=== PATIENT | female | born 1935 | race Caucasian/White ===

== ENCOUNTER → 2018-01-09 | Outpatient (REF) | payer MEDICARE, OTHER | LOC: M LAB REF 09:40 | DX: R19.7 Diarrhea, unspecified (principal) | CPT/HCPCS: 83630 ==

== ENCOUNTER 2018-01-28 13:40 | Outpatient (RCR) | payer MEDICARE, OTHER | END 2018-02-15 | LOC: M PT 13:40 | DX: Z51.89 Encounter for other specified aftercare (principal); M54.5 Low back pain | CPT/HCPCS: 97110 ==

== ENCOUNTER 2018-04-04 12:17 | Day surgery (SDC) | payer MEDICARE, OTHER ==
[2018-04-04] MEDS: NS 1,000 ML IV (12:57)
[2018-04-04] MEDS ORDERED: LIDOCAINE 2% INJ 100 MG/5 ML SDV (FOR ANES.) As Ordered (14:04)
[2018-04-04] MEDS ORDERED: PROPOFOL 200 MG/20 ML VIAL As Ordered (14:04)
[2018-04-04] MEDS ORDERED: fentaNYL 100 MCG/2 ML INJECTION (J3010) As Ordered (14:04)
== END 2018-04-04 14:43 | disposition home or self-care (01) ==
LOC: M OPP 12:17
DX: R12 Heartburn (principal); R10.13 Epigastric pain; R11.10 Vomiting, unspecified; R19.7 Diarrhea, unspecified; I10 Essential (primary) hypertension; E03.9 Hypothyroidism, unspecified; K21.9 Gastro-esophageal reflux disease without esophagitis; M19.90 Unspecified osteoarthritis, unspecified site; M54.89 Other dorsalgia; F41.9 Anxiety disorder, unspecified; F32.9 Major depressive disorder, single episode, unspecified; G25.81 Restless legs syndrome; I63.9 Cerebral infarction, unspecified; Z78.0 Asymptomatic menopausal state; J44.9 Chronic obstructive pulmonary disease, unspecified; R32 Unspecified urinary incontinence; Z85.118 Personal history of other malignant neoplasm of bronchus and lung; Z92.3 Personal history of irradiation; Z87.891 Personal history of nicotine dependence; I72.9 Aneurysm of unspecified site; Z91.041 Radiographic dye allergy status; Z88.5 Allergy status to narcotic agent; Z88.8 Allergy status to other drugs, medicaments and biological substances; Z79.899 Other long term (current) drug therapy; Z80.8 Family history of malignant neoplasm of other organs or systems
CPT/HCPCS: 43235

== ENCOUNTER → 2018-05-26 | Outpatient (CLI) | payer MEDICARE, OTHER ==
[2018-05-26 08:41] LABS: AMYLASE 26 U/L (25-115); LIPASE 180 U/L (73-393)
[2018-05-27 09:58] LABS: CA19-9 TUMOR MARKER,CARBOHYDRA 5.2 U/ML (<35.0)
[2018-05-29 00:07] LABS: CHROMOGRANIN A 2 nmol/L (0-5)
[2018-05-29 00:07] LABS: GASTRIN 18 pg/mL (0-115)
== END ==
LOC: M LAB 07:19
DX: R93.3 Abnormal findings on diagnostic imaging of other parts of digestive tract (principal); R19.7 Diarrhea, unspecified; Z79.899 Other long term (current) drug therapy
CPT/HCPCS: 82150

== ENCOUNTER → 2018-05-27 | Outpatient (CLI) | payer MEDICARE, OTHER ==
[~2018-05-27] MED LIST: GASTROGRAFIN SOLUTION 30ML (Q9963) As Ordered; ISOVUE-370 76% 100ML VIAL (Q9967) As Ordered
== END ==
LOC: M RAD 11:37
DX: K76.89 Other specified diseases of liver (principal); K57.30 Diverticulosis of large intestine without perforation or abscess without bleeding
CPT/HCPCS: Q9963

== ENCOUNTER 2018-07-03 06:36 | Day surgery (SDC) | payer MEDICARE, OTHER ==
[2018-07-03] MEDS: NS 1,000 ML IV (07:00)
[2018-07-03] MEDS ORDERED: PROPOFOL 200 MG/20 ML VIAL As Ordered ×2 (07:54→07:56)
[2018-07-03] MEDS ORDERED: LIDOCAINE 2% INJ 100 MG/5 ML SDV (FOR ANES.) As Ordered (07:54)
== END 2018-07-03 08:40 | disposition home or self-care (01) ==
LOC: M OPP 06:36
DX: K57.30 Diverticulosis of large intestine without perforation or abscess without bleeding (principal); K64.8 Other hemorrhoids; K52.831 Collagenous colitis
CPT/HCPCS: 45380

== ENCOUNTER → 2019-06-09 | Outpatient (CLI) | payer MEDICARE, OTHER ==
[~2019-06-09] MED LIST changes: +ADVA230A INH; +ALBU83IN INH; +BENI5TAB3 PO; +DARV100T; +ESTR62CR PV; -GASTROGRAFIN SOLUTION 30ML (Q9963) As Ordered; -ISOVUE-370 76% 100ML VIAL (Q9967) As Ordered; +LEVO25TA5 PO; +LIDO5DIS; +LIDO5DIS41 TD; +MULT1TAB10 PO; +PANT40TA3 PO; +PYCNOGENOL; +RANI150T PO; +ROPI0.253 PO; +SERT25TA21 PO; +SPIR1CAP INH; +TRAV04OPD OD; +VENTAER; +ZOFR4TAB16 PO; +[UNRECOGNIZED DRUG - OTHER]
--- NOTE | 2019-06-10 16:12 | REP ---
HISTORY: Followup lung carcinoma. COMPARISON: CT/PET 03/10/2015 which showed two hypermetabolic nodules in the lung jackson, one in the left lower lobe and the other in the right upper lobe. After the intravenous administration of 8.6 mCi of FDG-18, triplane whole body PET/CT was performed from the skull base to the mid thigh. There is a single tiny focus of hypermetabolic activity seen in the right neck retromandibular region inferior to the parotid gland, but likely within the parotid space. There are two areas of hypermetabolic activity seen in the right lung, one in the upper lobe with SUV values of 2.73 and the other in the right lower lobe with SUV values of 3.24. The right lower lobe area is quite large measuring approximately 4.2 cm. The right upper lobe area is small measuring approximately 2.2 cm. There are no additional areas of abnormal hypermetabolic activity seen in the neck, chest, abdomen or pelvis. There is a small focus of hypermetabolic activity seen in the trochanteric tendinobursal region of each hip. The SUV values of these areas are approximately 3.9. IMPRESSION: 1. There is a focus of hypermetabolic activity seen in the right neck as described above. Whether this represents a focus of inflammation or neoplasm cannot be stated by this exam. Contrast enhanced CT examination of the neck is recommended for further evaluation. 2. Abnormal hypermetabolic activity seen in the right lung field as described above, which could be either secondary to neoplasm or pneumonia. This should be correlated clinically. 3. 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 3. It should be stated that in the left paraspinal musculature, in the region of the erector spinae muscle group there is a single focus of hypermetabolic activity measuring 3.58 SUV values and the exact etiology of this is uncertain. This likely represents a focal area of muscular uptake due to improper resting, however, metastases cannot be ruled out, although this would be somewhat unlikely. Electronically Signed by Pola Cortez DO 06/10/2019 04:31 P
== END ==
LOC: M PLARAD 09:22
DX: C34.92 Malignant neoplasm of unspecified part of left bronchus or lung (principal)
CPT/HCPCS: 78815; A9552

== ENCOUNTER → 2020-06-14 | Outpatient (CLI) | payer MEDICARE, OTHER ==
[~2020-06-14] MED LIST changes: +ISOVUE-370 76% 100ML VIAL As Ordered ONE; +PANT40TA29 PO; -PANT40TA3 PO
--- NOTE | 2020-06-14 17:46 | REP ---
INDICATION: RIGHT RENAL CYST. HX LUNG CA COMPARISON: 05/27/2018. TECHNIQUE: CT Scan of the abdomen was performed with intravenous administration of 100 cc of Isovue 370, without oral contrast. FINDINGS: Lung bases: There is linear fibrotic change in the left lung base. There is a small hiatal hernia. Liver: There are multiple cysts scattered throughout the liver. The largest is in the left lobe and measures approximately 5.1 cm in diameter. This is slightly increased in size when compared to the prior study when it measured 4.5 cm. There is mild hepatomegaly, the length the liver 17.7 cm. Gallbladder: Unremarkable. Spleen: Normal. Adrenals: Normal. Pancreas: Ill-defined hypodensity in the head of the pancreas is stable consistent with focal fatty infiltration. Kidneys: Left kidney unremarkable. There is a subcentimeter cyst in the mid right kidney laterally. A cyst of the lower pole of the right kidney demonstrates no internal enhancement and measures 2.7 cm in diameter. Small and large bowel: Unremarkable. Free fluid: None. Abdominal aorta: No aneurysm or dissection. There are atherosclerotic calcifications of the abdominal aorta of a moderate degree. Adenopathy: None. Osseous structures: There are degenerative changes of the spine with no compression fracture. IMPRESSION: Multiple cysts in the liver without suspicious mass. Right renal cysts with no suspicious mass. No adenopathy. <Electronically signed by Severino Nye > 06/14/20 [id number]
--- NOTE | 2020-06-15 07:42 | REP ---
INDICATION: RIGHT RENAL CYST. HX LUNG CA. COMPARISON: Comparison PET/CT study June 09, 2019. TECHNIQUE: Helical scanning is acquired. 3 mm axial images re-formatted. Coronal and sagittal MPR images are generated. Contrast enhancement dose is 100 mL of intravenous Isovue 370. FINDINGS: There is no evidence of pleural effusion or pericardial effusion. Fairly extensive vascular calcification is observed. Multiple simple cysts are noted scattered throughout the right and left lobes of the liver. These findings are unchanged from the comparison PET/CT images. There is a sliding-type hiatal hernia visible and a small accessory splenule is noted in the left upper quadrant. No extra thoracic mass or adenopathy is seen. The adrenal glands are normal in appearance. There is a tiny cortical cyst in the upper pole of the right kidney. There is a perihilar parenchymal opacity in the left lower lobe with some metallic fiducial markers adjacent to it. This appears essentially unchanged from the CT images associated with the PET/CT from June 09, 2019. There is some linear fibrosis in the lingula at the left lung base also unchanged. In the right inferior perihilar region of the right lower lobe there is a perihilar parenchymal opacity with ill-defined margins also essentially unchanged from the June 09, 2019 study. There is a new spiculated nodular opacity in the superior segment of the left lower lobe 6 mm in diameter on today's CT study projecting on page 45 of 105 and series 204. This was not evident previously. In addition, there is a new spiculated nodular density in the right upper lobe on today's CT study which measures 12 mm in greatest diameter. This is also new when compared with the June 09, 2019 study. These spiculated nodules must be considered potentially suspicious. I suspect the perihilar bilateral lower lobe more confluent opacities may relate to previous therapy, question SBRT. There is mild biapical pleuroparenchymal fibrosis which is unchanged. Some emphysematous changes are noted in the apices. Lastly there is a third perihilar area of parenchymal opacity in the right upper lobe anterior segment which was present previously as well. No hilar or mediastinal mass or adenopathy is observed. There is a tiny thyroid nodule on the right. This is under a cm. No bony destructive lesion is appreciated. IMPRESSION: There are peribronchovascular perihilar areas of chronic infiltrate and fibrosis in the left lower lobe, right lower lobe, and right upper lobe which are unchanged from the comparison PET-CT images June 09, 2019. These may be related to previous treatment. In addition however, there is a spiculated 6 mm nodule in the left lower lobe and another 12 mm spiculated nodule in the right upper lobe which are new when compared with that prior CT study and merit some suspicion. CT follow-up recommended. Stable hepatic cysts. <Electronically signed by Josh Squires > 06/15/20 [id number]
== END ==
LOC: M RAD 12:43
DX: R91.8 Other nonspecific abnormal finding of lung field (principal); K76.89 Other specified diseases of liver; N28.1 Cyst of kidney, acquired; Z85.118 Personal history of other malignant neoplasm of bronchus and lung
CPT/HCPCS: 71260; 74160; Q9967

== ENCOUNTER → 2021-01-27 | Outpatient (CLI) | payer MEDICARE, OTHER ==
--- NOTE | 2021-01-27 13:33 | REP ---
INDICATION: HX OF LUNG CANCER COMPARISON: 06/14/2020 the only prior TECHNIQUE: Standard helical technique after the intravenous administration of 100 cc Isovue 370. FINDINGS: The mediastinum and pulmonary sheba are stable. No pleural or pericardial effusions have developed. The imaged upper abdomen and imaged osseous structures are stable. Evaluation of the lung jackson shows an increase in size of the asymmetric density seen previously in the right upper lobe which measured approximately 1.2 cm in its greatest dimension on the prior exam and now measures approximately 2.2 cm in its greatest dimension. The large asymmetric density abutting the right hilum is unchanged. The large bilateral infrahilar densities seen on the prior exam are also unchanged. No completely new abnormal nodules, masses, or opacities have developed. There are stable appearing chronic lung field changes. IMPRESSION: 1. The right upper lobe asymmetric density seen previously has gotten larger as described above. Consider re-evaluation with PET-CT so it can be compared to the prior PET-CT of 08/09/2019 if clinically relevant. 2. Other findings as described above. <Electronically signed by Pola Cortez > 01/27/21 [id number]
== END ==
LOC: M RAD 07:36
DX: Z85.118 Personal history of other malignant neoplasm of bronchus and lung (principal)
CPT/HCPCS: 71260; Q9967

== ENCOUNTER → 2021-02-21 | Outpatient (CLI) | payer MEDICARE, OTHER ==
[~2021-02-21] MED LIST changes: -ISOVUE-370 76% 100ML VIAL As Ordered ONE
--- NOTE | 2021-02-22 08:59 | REP ---
INDICATION: LUNG CANCER. COMPARISON: Comparison PET-CT studies are dated June 09, 2019 and March 10, 2015. Recent chest CT study, January 27, 2021 showed enlarging density right upper lobe.. TECHNIQUE: Fifty-six minutes following the intravenous injection of a 8.82 mCi dose of F-18 FDG, three-dimensional PET scintigraphy is acquired from the skull base to the proximal thighs. Triplanar noncontrast CT scanning is acquired through the same anatomic range for attenuation correction, and image registration with scan parameters optimized to minimize radiation exposure to the patient. PET scintigraphy and CT datasets were fused and displayed on a workstation with multiplanar and projection display capability. FINDINGS: In the head and neck soft tissues, a hypermetabolic hayley focus is again seen in the right parotid gland. This has maximum SUV value today of 7.99. On the previous scan in May of 2019, maximum SUV value here was 8.05. Head and neck soft tissues are otherwise unremarkable. There is some normal variant arthropathy associated soft tissue uptake about the shoulders and in the paraspinal regions similar to the prior study. In the thorax there is a fairly large sliding-type hiatal hernia. There is bony and soft tissue uptake at the level of the fracture involving the left posterolateral 6th rib. This is a new finding. No other abnormal skeletal uptake is seen. No definite bony destructive lesion is seen. The recently identified enlarging nodule in the right upper lobe is again seen on accompanying CT study. This irregular nodular density demonstrates hypermetabolic uptake. Maximum standard uptake value is 5.46 in this nodular density. This lesion was not present on the [address] PET-CT. There is mildly hypermetabolic uptake in the right upper lobe anteriorly in a linear zone of fibro atelectatic change. Maximum SUV value 3.68. On the previous scan from 2018, maximum SUV value here was 2.77. Morphologically, this area is unchanged. There is mildly hypermetabolic uptake in a chronic infiltrate in the right lower lobe posteriorly, maximum standard uptake value 3.42. Previously this area measured 2.70. Uptake in the right inferior hilar region is seen only very slightly increased from the prior study and, SUV value 4.07 today, previously 3.24. In the abdomen and pelvis renal and hepatic cysts are again noted. No abnormal hypermetabolic uptake is seen in the abdomen or pelvis. No other abnormal skeletal uptake. IMPRESSION: There is a new hypermetabolic nodular density in the right upper lobe. This is nonspecific. Malignancy cannot be excluded. This corresponds to the enlarging density described on the January 27, 2021 CT study. There are chronic appearing fibro atelectatic and infiltrative changes elsewhere in the lung jackson which are similar to the prior study and most likely post treatment changes. There is a stable hypermetabolic nodule in the right parotid gland. <Electronically signed by Josh Squires > 02/22/21 0828
== END ==
LOC: M PLARAD 11:23
PROVIDERS: ATTEND Internal Medicine Medical Oncology
DX: C34.11 Malignant neoplasm of upper lobe, right bronchus or lung (principal); C34.92 Malignant neoplasm of unspecified part of left bronchus or lung
CPT/HCPCS: 78815; A9552

== ENCOUNTER → 2021-03-08 | Outpatient (REF) | payer MEDICARE, OTHER ==
[2021-03-08 17:42] LABS: BASO # 0.1 10^3/uL (0.0-0.2); BASO % 1.3 % (0.0-1.0); EOS # 0.1 10^3/uL (0.0-0.5); EOS % 1.3 % (0.0-3.0); HEMATOCRIT 39.8 % (36.0-47.0); HEMOGLOBIN 12.6 g/dl (12.0-15.5); LYMPH # 1.9 10^3/uL (1.5-5.0); LYMPH % 18.6 % (24.0-44.0); MEAN CORPUSCULAR HEMOGLOBIN 30.2 pg (27.0-33.0); MEAN CORPUSCULAR HGB CONC 31.7 g/dl (32.0-36.5); MEAN CORPUSCULAR VOLUME 95.4 fl (80.0-96.0); MONO # 0.5 10^3/uL (0.0-0.8); MONO % 5.1 % (2.0-8.0); NEUTROPHILS # 7.6 10^3/uL (1.5-8.5); NEUTROPHILS % 73.1 % (36.0-66.0); PLATELET COUNT, AUTOMATED 316 10^3/uL (150-450); RED BLOOD COUNT 4.17 10^6/uL (4.00-5.40); WHITE BLOOD COUNT 10.4 10^3/uL (4.0-10.0)
[2021-03-08 18:13] LABS: CALCIUM LEVEL 9.1 MG/DL (8.8-10.2); CREATININE FOR GFR 1.06 MG/DL (0.55-1.30); GLOMERULAR FILTRATION RATE 52.7 (>32); POTASSIUM SERUM 4.6 MEQ/L (3.5-5.1)
== END ==
LOC: M LAB REF 16:47
PROVIDERS: ATTEND Internal Medicine Pulmonary Disease
DX: R91.8 Other nonspecific abnormal finding of lung field (principal)

== ENCOUNTER → 2021-03-14 | Outpatient (REF) | payer MEDICARE, OTHER ==
[2021-03-14 16:58] LABS: INR 0.92; PROTHROMBIN TIME 12.6 SECONDS (12.5-14.3)
[2021-03-14 16:59] LABS: PARTIAL THROMBOPLASTIN TIME 29.2 SECONDS (24.2-38.5)
== END ==
LOC: M LAB REF 16:42
PROVIDERS: ATTEND Internal Medicine Pulmonary Disease
DX: R91.8 Other nonspecific abnormal finding of lung field (principal)

== ENCOUNTER → 2021-03-17 | Outpatient (CLI) | payer MEDICARE, OTHER ==
--- NOTE | 2021-03-17 11:38 | REP ---
INDICATION: ABN FINDING OF LUNG. COMPARISON: CT 01/27/2021, 06/14/2020; PET-CT 02/21/2021 TECHNIQUE: Noncontrast images through the chest with coronal and sagittal reconstructions provided. FINDINGS: The enlarging right upper lobe nodular density on the CT of 01/27/2021 was hypermetabolic on PET CT it has not enlarged further but it has become less confluent. Stable peripheral right upper lobe opacity on image 12 is unchanged on multiple prior studies. Some apical pleuroparenchymal scarring bilaterally is stable. Stable chronic density suggesting fibrosis and or scarring abutting the right hilum in the upper lobe is unchanged from the multiple prior studies. The infrahilar right lower lobe asymmetric density is likewise unchanged from the multiple prior studies. Perihilar infrahilar left lower lobe asymmetric densities were also unchanged. No new left upper lobe or lingular density seen. Some minor lingular atelectatic change abutting the major fissure in the inferior lingular segment. I do not see effusion or new parenchymal findings. Heart size not grossly enlarged. There is no pericardial thickening or effusion. There is a moderate-sized hiatal hernia unchanged the left atrium is enlarged. There are coronary artery calcifications and calcifications at the aortic root, arch and descending aorta. The right hilar/infrahilar fullness is unchanged from the multiple prior studies. AP window shows a 10 mm node on image 46, stable. The other nodes are subcentimeter in the mediastinum. Sternum, manubrium, medial clavicles, visualized scapulae, humeral heads normal and the lateral 6th rib fracture is unchanged. No other rib injuries. Spine unchanged and intact. Upper abdomen shows multiple hepatic cysts and a slightly prominent left hepatic lobe. No splenomegaly or focal splenic lesion. No biliary dilatation. Adrenal glands are normal. Upper poles kidneys intact. The portion of pancreas seen intact. IMPRESSION: 1. There are multiple areas of chronic, stable fibrotic or post treatment changes in the bilateral lungs. The posterior right upper lobe enlarging focus shows slightly less confluence and no further progression. Please see PET-CT report 02/21/2021 regarding uptake in this region. 2. No effusion, acute infiltrate, new parenchymal lesions, change in the mediastinal or hilar nodes in contours nor upper abdominal acute changes. 3. Left lateral 6th rib fracture again seen unchanged. No new bony findings. <Electronically signed by Raúl Hendricks > 03/17/21 [id number]
== END ==
LOC: M RAD 10:21
PROVIDERS: ATTEND Internal Medicine Pulmonary Disease
DX: R91.8 Other nonspecific abnormal finding of lung field (principal)

== ENCOUNTER → 2021-06-09 | Outpatient (CLI) | payer MEDICARE, OTHER ==
--- NOTE | 2021-06-09 12:08 | REP ---
INDICATION: ABNORMAL FINDING OF LUNG FIELD COMPARISON: Multiple the latest 03/17/2021 also without contrast standard helical technique without contrast TECHNIQUE: Standard helical technique without contrast FINDINGS: There is no significant change in appearance of the mediastinum or pulmonary sheba. The 1 cm size lymph node in the consuelo is unchanged. No pleural or pericardial effusions have developed. There is a hiatal hernia status quo. There is no significant change in appearance of the imaged upper abdomen or imaged osseous structures. Evaluation of the lung jackson shows chronic emphysematous changes status quo. Chronic bilateral asymmetric pulmonary densities status quo. There are multiple pulmonary nodules which are stable. There is biapical pleuroparenchymal scarring status quo. There is a new ground-glass nodule in the left lower lobe which measures 1.2 cm. IMPRESSION: There is a new 1.2 cm sized ground-glass nodule in the left lower lobe. This is somewhat concerning. Close follow-up is recommended. <Electronically signed by Pola Cortez > 06/09/21 [id number]
== END ==
LOC: M PLAIMG 10:07
PROVIDERS: ATTEND Internal Medicine Pulmonary Disease
DX: R91.8 Other nonspecific abnormal finding of lung field (principal)

== ENCOUNTER → 2021-07-10 | Outpatient (CLI) | payer MEDICARE, OTHER ==
--- NOTE | 2021-07-10 11:52 | REP ---
INDICATION: ABN FINDING OF LUNG COMPARISON: Multiple the latest 06/09/2021 TECHNIQUE: Standard helical technique without contrast FINDINGS: The mediastinum and pulmonary sheba are stable. There is a hiatal hernia status quo. There are benign calcifications status quo. The imaged upper abdomen and imaged osseous structures are unchanged. There are spinal degenerative changes. There are multiple hepatic cysts. Evaluation of the lung jackson shows significant reduction in size and density in the ground-glass nodule seen in the left lower lobe on the latest prior exam. The lung jackson are otherwise completely stable. There are no new abnormalities. IMPRESSION: Improvement as described above. There is no revised Fleischner society criteria on the recommendation for follow-up of such findings. Follow-up should be based on clinical assessment. <Electronically signed by Pola Cortez > 07/10/21 [id number]
== END ==
LOC: M RAD 09:26
PROVIDERS: ATTEND Internal Medicine Pulmonary Disease
DX: R91.8 Other nonspecific abnormal finding of lung field (principal)

== ENCOUNTER → 2022-01-08 | Outpatient (CLI) | payer MEDICARE, OTHER | LOC: M PLAIMG 09:31 | PROVIDERS: ATTEND Internal Medicine Pulmonary Disease | DX: R91.8 Other nonspecific abnormal finding of lung field (principal) ==

== ENCOUNTER → 2022-01-11 | Outpatient (REF) | payer MEDICARE, OTHER ==
[2022-01-11 14:07] LABS: BILIRUBIN,DIRECT 0.1 MG/DL (0.0-0.2); BILIRUBIN,TOTAL 0.4 MG/DL (0.2-1.0)
== END ==
LOC: M LAB REF 12:42
PROVIDERS: ATTEND Internal Medicine Pulmonary Disease
DX: R91.8 Other nonspecific abnormal finding of lung field (principal)

== ENCOUNTER → 2022-01-24 | Outpatient (CLI) | payer MEDICARE, OTHER ==
[~2022-01-24] MED LIST changes: +ALBU2.5V10 INH; -ALBU83IN INH
== END ==
LOC: M RAD 07:43
PROVIDERS: ATTEND Internal Medicine Pulmonary Disease
DX: R10.11 Right upper quadrant pain (principal)

== ENCOUNTER → 2022-07-06 | Outpatient (CLI) | payer MEDICARE, OTHER ==
[~2022-07-06] MED LIST changes: -BENI5TAB3 PO; +OLME5TAB27 PO
== END ==
LOC: M PLAIMG 10:12
PROVIDERS: ATTEND Internal Medicine Pulmonary Disease
DX: R91.8 Other nonspecific abnormal finding of lung field (principal)

== ENCOUNTER 2022-11-20 13:21 | Emergency (ER) | payer MEDICARE, OTHER ==
[~2022-11-20] VITALS: Ht 167.6 cm; Wt 82.3 kg
[2022-11-20] MEDS ORDERED: methylPREDNISolone 125MG 2ML VIAL IV STA (15:00)
[2022-11-20 15:01] LABS: BASO % 0.5 % (0.0-1.0); EOS # 0.5 10^3/uL (0.0-0.5); HEMATOCRIT 32.9 % (36.0-47.0); HEMOGLOBIN 10.4 g/dl (12.0-15.5); LYMPH # 1.3 10^3/uL (1.5-5.0); LYMPH % 17.9 % (24.0-44.0); MEAN CORPUSCULAR HEMOGLOBIN 30.9 pg (27.0-33.0); MEAN CORPUSCULAR HGB CONC 31.6 g/dl (32.0-36.5); MEAN CORPUSCULAR VOLUME 97.6 fl (80.0-96.0); MONO # 0.6 10^3/uL (0.0-0.8); MONO % 7.6 % (2.0-8.0); NEUTROPHILS # 5.1 10^3/uL (1.5-8.5); NEUTROPHILS % 67.6 % (36.0-66.0); PLATELET COUNT, AUTOMATED 286 10^3/uL (150-450); RED BLOOD COUNT 3.37 10^6/uL (4.00-5.40); WHITE BLOOD COUNT 7.5 10^3/uL (4.0-10.0)
[2022-11-20 15:09] LABS: BLOOD UREA NITROGEN 11 MG/DL (9-23); CALCIUM LEVEL 8.2 MG/DL (8.3-10.6); CARBON DIOXIDE LEVEL 30 MMOL/L (20-31); CHLORIDE LEVEL 106 MMOL/L (98-107); CREATININE FOR GFR 0.72 MG/DL (0.55-1.30); GLOMERULAR FILTRATION RATE > 60.0 (>32); GLUCOSE, FASTING 103 MG/DL (74-106); POTASSIUM SERUM 3.6 MMOL/L (3.5-5.1); SODIUM LEVEL 138 MMOL/L (136-145)
[2022-11-20] MEDS: IPRATROPIUM 0.5MG/ALBUTEROL 2.5MG INH SOL UD 3ML (DUONEB) NEB SCH ×3 (15:12→18:04)
[2022-11-20 15:13] LABS: CPK CREATINE PHOSPHOKINASE 167 U/L (34-145); MB/CK RELATIVE INDEX 1.19 (< OR =4)
[2022-11-20] MEDS ORDERED: FLUT1BLS8 (15:37)
[2022-11-20] MEDS ORDERED: METH4PACK (15:37)
[2022-11-20] MEDS ORDERED: SYNT50TA (15:37)
[2022-11-20] MEDS ORDERED: CILO50TA2 (15:37)
[2022-11-20] MEDS ORDERED: PRED10TA2 PO (17:21)
[2022-11-20 18:23] VITALS: BP 148/57
== END 2022-11-20 18:25 | disposition home or self-care (01) ==
LOC: M ED 13:21
DX: R07.9 Chest pain, unspecified (principal); J44.1 Chronic obstructive pulmonary disease with (acute) exacerbation; I10 Essential (primary) hypertension; K21.9 Gastro-esophageal reflux disease without esophagitis; Z86.79 Personal history of other diseases of the circulatory system; Z88.5 Allergy status to narcotic agent; Z88.8 Allergy status to other drugs, medicaments and biological substances; Z79.52 Long term (current) use of systemic steroids; Z79.83 Long term (current) use of bisphosphonates; Z79.899 Other long term (current) drug therapy
CPT/HCPCS: 71045; 80048; 82550; 82553; 84484; 85025; 93005; 94640; 96374; 99284; J2930

== ENCOUNTER → 2022-11-28 | Outpatient (REF) | payer MEDICARE, OTHER ==
[~2022-11-28] MED LIST changes: +CILO50TA2; +FLUT1BLS8; +METH4PACK; +PRED10TA2 PO; +SYNT50TA
== END ==
LOC: M LAB REF 17:07
PROVIDERS: ATTEND Internal Medicine Critical Care Medicine
DX: R05.3 Chronic cough (principal)

== ENCOUNTER → 2022-12-04 | Outpatient (CLI) | payer MEDICARE, OTHER | LOC: M RAD 07:59 | PROVIDERS: ATTEND Internal Medicine Pulmonary Disease | DX: R91.8 Other nonspecific abnormal finding of lung field (principal) ==

== ENCOUNTER → 2022-12-11 | Outpatient (CLI) | payer MEDICARE, OTHER ==
[~2022-12-11] MED LIST changes: +GASTROGRAFIN SOLUTION 30ML As Ordered ONE; +ISOVUE-370 76% 100ML VIAL As Ordered ONE
== END ==
LOC: M RAD 12:13
PROVIDERS: ATTEND Internal Medicine Critical Care Medicine
DX: K86.1 Other chronic pancreatitis (principal); I51.7 Cardiomegaly; K44.9 Diaphragmatic hernia without obstruction or gangrene; K76.89 Other specified diseases of liver; N28.1 Cyst of kidney, acquired; K57.90 Diverticulosis of intestine, part unspecified, without perforation or abscess without bleeding
CPT/HCPCS: 74176; Q9963

== ENCOUNTER → 2023-01-08 | Outpatient (CLI) | payer MEDICARE, OTHER ==
[~2023-01-08] MED LIST changes: -GASTROGRAFIN SOLUTION 30ML As Ordered ONE; -ISOVUE-370 76% 100ML VIAL As Ordered ONE
[2023-01-08 10:51] LABS: ALBUMIN 3.1 G/DL (3.2-5.2); ALKALINE PHOSPHATASE 58 U/L (46-116); ALT/SGPT 17 U/L (7.0-40); AST/SGOT 23 U/L (<34); BILIRUBIN,TOTAL 0.4 MG/DL (0.3-1.2); BLOOD UREA NITROGEN 15 MG/DL (9-23); CALCIUM LEVEL 9.2 MG/DL (8.3-10.6); CARBON DIOXIDE LEVEL 30 MMOL/L (20-31); CHLORIDE LEVEL 107 MMOL/L (98-107); CREATININE FOR GFR 0.82 MG/DL (0.55-1.30); GLOMERULAR FILTRATION RATE > 60.0 (>32); GLUCOSE, FASTING 80 MG/DL (74-106); POTASSIUM SERUM 4.4 MMOL/L (3.5-5.1); SODIUM LEVEL 142 MMOL/L (136-145)
[2023-01-08 11:10] LABS: CA19-9 TUMOR MARKER,CARBOHYDRA 2.7 U/ML (<35.0)
== END ==
LOC: M LAB 09:21
PROVIDERS: ATTEND Internal Medicine Gastroenterology
DX: K86.89 Other specified diseases of pancreas (principal)

== ENCOUNTER → 2023-04-11 | Outpatient (CLI) | payer MEDICARE, OTHER ==
[~2023-04-11] MED LIST changes: -ROPI0.253 PO; +ROPI5TAB19 PO
[2023-04-11 10:51] LABS: ALBUMIN 3.8 G/DL (3.2-5.2); BILIRUBIN,DIRECT 0.1 MG/DL (<0.4); BILIRUBIN,TOTAL 0.5 MG/DL (0.3-1.2); TOTAL PROTEIN 7.7 G/DL (5.7-8.2)
[2023-04-11 11:07] LABS: CA19-9 TUMOR MARKER,CARBOHYDRA 11.1 U/ML (<35.0)
== END ==
LOC: M LAB 09:54
PROVIDERS: ATTEND Internal Medicine Gastroenterology
DX: K86.89 Other specified diseases of pancreas (principal)

== ENCOUNTER → 2023-05-28 | Outpatient (CLI) | payer MEDICARE, OTHER ==
[2023-05-28 12:12] LABS: ALBUMIN 3.9 G/DL (3.2-5.2); ALKALINE PHOSPHATASE 64 U/L (46-116); ALT/SGPT 20 U/L (7.0-40); AST/SGOT 21 U/L (<34); BILIRUBIN,TOTAL 0.6 MG/DL (0.3-1.2); BLOOD UREA NITROGEN 22 MG/DL (9-23); CALCIUM LEVEL 9.4 MG/DL (8.3-10.6); CARBON DIOXIDE LEVEL 30 MMOL/L (20-31); CHLORIDE LEVEL 108 MMOL/L (98-107); CREATININE FOR GFR 0.79 MG/DL (0.55-1.30); GLOMERULAR FILTRATION RATE > 60.0 (>32); GLUCOSE, FASTING 80 MG/DL (74-106); POTASSIUM SERUM 4.5 MMOL/L (3.5-5.1); SODIUM LEVEL 143 MMOL/L (136-145); TOTAL PROTEIN 7.5 G/DL (5.7-8.2)
== END ==
LOC: M LAB 11:00
PROVIDERS: ATTEND Internal Medicine Gastroenterology
DX: K86.89 Other specified diseases of pancreas (principal)

== ENCOUNTER → 2023-06-04 | Outpatient (CLI) | payer MEDICARE, OTHER ==
[~2023-06-04] MED LIST changes: +GASTROGRAFIN SOLUTION 30ML As Ordered ONE; +ISOVUE-370 76% 100ML VIAL As Ordered ONE
== END ==
LOC: M RAD 11:14
PROVIDERS: ATTEND Internal Medicine Gastroenterology
DX: K86.89 Other specified diseases of pancreas (principal); Z80.0 Family history of malignant neoplasm of digestive organs
CPT/HCPCS: 74170; Q9963; Q9967

== ENCOUNTER → 2023-07-09 | Outpatient (CLI) | payer MEDICARE, OTHER ==
[~2023-07-09] MED LIST changes: -GASTROGRAFIN SOLUTION 30ML As Ordered ONE; -ISOVUE-370 76% 100ML VIAL As Ordered ONE
== END ==
LOC: M PLAIMG 12:32
PROVIDERS: ATTEND Internal Medicine Pulmonary Disease
DX: Z08 Encounter for follow-up examination after completed treatment for malignant neoplasm (principal); Z85.118 Personal history of other malignant neoplasm of bronchus and lung; K44.9 Diaphragmatic hernia without obstruction or gangrene; K76.89 Other specified diseases of liver

== ENCOUNTER → 2023-12-23 | Outpatient (CLI) | payer MEDICARE, OTHER | LOC: M PLARAD 12:45 | PROVIDERS: ATTEND Internal Medicine Pulmonary Disease | DX: R91.8 Other nonspecific abnormal finding of lung field (principal) | CPT/HCPCS: 78815; A9552 ==

== ENCOUNTER 2024-01-15 10:17 | Day surgery (SDC) | payer MEDICARE, OTHER ==
[~2024-01-15] VITALS: Ht 162.6 cm; Wt 74.2 kg
[~2024-01-15 10:17] MED LIST changes: -CILO50TA2; +CILO50TA2 PO; -METH4PACK; +METH4PACK PO; +MUCI600T31 PO; +ONDA4TAB6 PO; +PRED5PAK PO; -SYNT50TA; +SYNT50TA PO; +VITA500C24 PO
[2024-01-15] MEDS ORDERED: fentaNYL 100 MCG/2 ML INJECTION As Ordered ONE (11:28)
[2024-01-15] MEDS ORDERED: LIDOCAINE 2% 100MG/5ML SDV (FOR ANES.) As Ordered ONE (11:28)
[2024-01-15] MEDS ORDERED: ONDANSETRON 4MG 2ML VIAL As Ordered ONE (11:28)
[2024-01-15] MEDS ORDERED: propofoL 200 MG/20 ML VIAL As Ordered ONE (11:28)
[2024-01-15] MEDS ORDERED: ROCURONIUM BROMIDE 50MG/5ML VIAL As Ordered ONE (11:28)
[2024-01-15] MEDS: ALBUTEROL SULFATE 2.5MG/0.5ML INH NEB SOLN INH ONE (12:03)
[2024-01-15] MEDS: LIDOCAINE PRES-FREE 2% 10ML AMP INH ONE (12:04)
[2024-01-15] MEDS: LR 1,000 ML IV SCH (12:04)
[2024-01-15] MEDS: CETACAINE SPRAY 5GM As Ordered ONE (12:25)
[2024-01-15] MEDS: EPINEPHrine 1MG/10ML SYRINGE 1.5IN As Ordered ONE (12:25)
[2024-01-15] MEDS ORDERED: fentaNYL 100 MCG/2 ML INJECTION IV PRN (12:55)
[2024-01-15] MEDS ORDERED: oxyCODONE 5MG TAB PO PRN (12:55)
[2024-01-15] MEDS ORDERED: LR 1,000 ML IV SCH (12:55)
[2024-01-15] MEDS ORDERED: ONDANSETRON 4MG 2ML VIAL IV PRN (12:55)
[2024-01-15 14:16] VITALS: BP 168/78; TEMP 96.7; O2SAT 96
== END 2024-01-15 14:20 | disposition home or self-care (01) ==
LOC: M SDC 10:17
PROVIDERS: ATTEND Internal Medicine Pulmonary Disease
DX: J47.9 Bronchiectasis, uncomplicated (principal); Z87.891 Personal history of nicotine dependence; I10 Essential (primary) hypertension; E03.9 Hypothyroidism, unspecified; Z92.3 Personal history of irradiation; Z85.118 Personal history of other malignant neoplasm of bronchus and lung; Z79.51 Long term (current) use of inhaled steroids; F41.9 Anxiety disorder, unspecified; F32.A Depression, unspecified; J44.9 Chronic obstructive pulmonary disease, unspecified; Z79.899 Other long term (current) drug therapy; K21.9 Gastro-esophageal reflux disease without esophagitis; Z88.5 Allergy status to narcotic agent; Z88.1 Allergy status to other antibiotic agents
CPT/HCPCS: 31623; 31652; 71045; 88104; 88305; J0171; J1100; J2405; J3010; S2900

== ENCOUNTER → 2024-02-11 | Outpatient (CLI) | payer MEDICARE, OTHER ==
[~2024-02-11] MED LIST changes: +ONDA-282 PO; -ONDA4TAB6 PO
== END ==
LOC: M RAD 11:14
PROVIDERS: ATTEND Otolaryngology
DX: R59.9 Enlarged lymph nodes, unspecified (principal)

== ENCOUNTER → 2024-02-24 | Outpatient (CLI) | payer OTHER ==
[~2024-02-24] MED LIST changes: +BRIM0.2S13; +FAMO1TAB11 PO; +LIDOCAINE 1% MDV 20ML VIAL As Ordered ONE
[2024-02-24 12:20] VITALS: BP 182/98; TEMP 97.6; O2SAT 97
== END ==
LOC: M IRPRO 11:52
PROVIDERS: ATTEND Otolaryngology
DX: R59.9 Enlarged lymph nodes, unspecified (principal)

== ENCOUNTER 2024-02-25 12:59 | Day surgery (SDC) | payer MEDICARE, OTHER ==
[~2024-02-25] VITALS: Ht 162.6 cm; Wt 75.3 kg
[~2024-02-25 12:59] MED LIST changes: -LIDOCAINE 1% MDV 20ML VIAL As Ordered ONE
[2024-02-25] MEDS: NS 1,000 ML IV ONE (13:18)
[2024-02-25] MEDS ORDERED: LIDOCAINE 2% 100MG/5ML SDV (FOR ANES.) As Ordered ONE (13:56)
[2024-02-25] MEDS ORDERED: propofoL 200 MG/20 ML VIAL As Ordered ONE (13:56)
[2024-02-25] MEDS ORDERED: fentaNYL 100 MCG/2 ML INJECTION As Ordered ONE (13:57)
[2024-02-25 14:42] VITALS: BP 172/72; O2SAT 95
== END 2024-02-25 14:52 | disposition home or self-care (01) ==
LOC: M OPP 12:59
PROVIDERS: ATTEND Internal Medicine Gastroenterology
DX: K22.89 Other specified disease of esophagus (principal); K29.60 Other gastritis without bleeding; K44.9 Diaphragmatic hernia without obstruction or gangrene; R12 Heartburn; I10 Essential (primary) hypertension; E03.9 Hypothyroidism, unspecified; Z79.1 Long term (current) use of non-steroidal anti-inflammatories (NSAID); Z79.52 Long term (current) use of systemic steroids; Z79.890 Hormone replacement therapy; Z79.899 Other long term (current) drug therapy; Z88.1 Allergy status to other antibiotic agents; Z88.5 Allergy status to narcotic agent; Z88.8 Allergy status to other drugs, medicaments and biological substances
CPT/HCPCS: 43239; 88305; J3010

== ENCOUNTER → 2024-05-29 | Outpatient (CLI) | payer OTHER ==
[2024-05-29 14:34] LABS: BLOOD UREA NITROGEN 25 MG/DL (9-23); CALCIUM LEVEL 9.7 MG/DL (8.3-10.6); CARBON DIOXIDE LEVEL 30 MMOL/L (20-31); CHLORIDE LEVEL 104 MMOL/L (98-107); CREATININE FOR GFR 0.92 MG/DL (0.55-1.30); GLOMERULAR FILTRATION RATE > 60.0 (>32); GLUCOSE, FASTING 91 MG/DL (74-106); POTASSIUM SERUM 4.1 MMOL/L (3.5-5.1); SODIUM LEVEL 140 MMOL/L (136-145)
== END ==
LOC: M LAB 12:41
PROVIDERS: ATTEND Internal Medicine Gastroenterology
DX: K86.1 Other chronic pancreatitis (principal); Z80.0 Family history of malignant neoplasm of digestive organs; K86.89 Other specified diseases of pancreas

== ENCOUNTER → 2024-06-01 | Outpatient (CLI) | payer OTHER | LOC: M PLAIMG 10:48 | PROVIDERS: ATTEND Internal Medicine Pulmonary Disease | DX: R91.8 Other nonspecific abnormal finding of lung field (principal) ==

== ENCOUNTER → 2024-06-01 | Outpatient (CLI) | payer OTHER ==
[~2024-06-01] MED LIST changes: +GASTROGRAFIN SOLUTION 30ML ONE; +ISOVUE-370 76% 100ML VIAL ONE
== END ==
LOC: M PLAIMG 10:49
PROVIDERS: ATTEND Internal Medicine Gastroenterology
DX: K86.1 Other chronic pancreatitis (principal); K86.89 Other specified diseases of pancreas; Z80.0 Family history of malignant neoplasm of digestive organs; R91.8 Other nonspecific abnormal finding of lung field
CPT/HCPCS: 71250; 74160; Q9963; Q9967

== ENCOUNTER → 2024-11-24 | Outpatient (CLI) | payer OTHER ==
[~2024-11-24] MED LIST changes: -GASTROGRAFIN SOLUTION 30ML ONE; -ISOVUE-370 76% 100ML VIAL ONE
[2024-11-24 10:23] LABS: BASO # 0.1 10^3/uL (0.0-0.2); BASO % 0.6 % (0.0-1.0); EOS # 0.1 10^3/uL (0.0-0.5); EOS % 0.9 % (0.0-3.0); HEMATOCRIT 38.2 % (36.0-47.0); HEMOGLOBIN 11.9 g/dl (12.0-15.5); LYMPH # 1.2 10^3/uL (1.5-5.0); LYMPH % 8.4 % (24.0-44.0); MEAN CORPUSCULAR HEMOGLOBIN 29.8 pg (27.0-33.0); MEAN CORPUSCULAR HGB CONC 31.2 g/dl (32.0-36.5); MEAN CORPUSCULAR VOLUME 95.7 fl (80.0-96.0); MONO % 7.1 % (2.0-8.0); NEUTROPHILS # 11.3 10^3/uL (1.5-8.5); NEUTROPHILS % 82.3 % (36.0-66.0); PLATELET COUNT, AUTOMATED 317 10^3/uL (150-450); RED BLOOD COUNT 3.99 10^6/uL (4.00-5.40); WHITE BLOOD COUNT 13.7 10^3/uL (4.0-10.0)
[2024-11-24 10:46] LABS: ALBUMIN 3.2 G/DL (3.2-5.2); ALKALINE PHOSPHATASE 55 U/L (35-104); ALT/SGPT 20 U/L (7.0-40); AST/SGOT 16 U/L (<34); BILIRUBIN,TOTAL 0.5 MG/DL (0.3-1.2); BLOOD UREA NITROGEN 24 MG/DL (9-23); CALCIUM LEVEL 9.4 MG/DL (8.3-10.6); CARBON DIOXIDE LEVEL 31 MMOL/L (20-31); CHLORIDE LEVEL 105 MMOL/L (98-107); CREATININE FOR GFR 0.91 MG/DL (0.55-1.30); GLOMERULAR FILTRATION RATE > 60.0 (>32); GLUCOSE, FASTING 60 MG/DL (74-106); POTASSIUM SERUM 4.3 MMOL/L (3.5-5.1); SODIUM LEVEL 142 MMOL/L (136-145)
[2024-11-24 13:43] LABS: APPEARANCE, URINE CLOUDY (CLEAR); BACTERIA, URINE AUTO 1+ (NEGATIVE); BILIRUBIN, URINE AUTO NEGATIVE (NEGATIVE); BLOOD, URINE BLOOD NEGATIVE (NEGATIVE); CALCIUM OXALATE CRYSTALS LARGE; COLOR, URINE YELLOW (YELLOW); GLUCOSE, URINE (UA) AUTO NEGATIVE (NEGATIVE); KETONE, URINE AUTO NEGATIVE (NEGATIVE); LEUKOCYTE ESTERASE, URINE AUTO 3+ (NEGATIVE); MUCUS, URINE SMALL (NEGATIVE); NITRITE, URINE AUTO NEGATIVE (NEGATIVE); PROTEIN, URINE AUTO NEGATIVE (NEGATIVE); RBC, URINE AUTO 5 /HPF (0-3); SPECIFIC GRAVITY URINE AUTO 1.014 (1.002-1.035); SQUAMOUS EPITHELIAL CELL UR AU 9 /HPF (0-6); UROBILINOGEN, URINE AUTO 0.2 mg/dL (0.0-2.0); WBC, URINE AUTO 10 /HPF (0-3)
== END ==
LOC: M PLALAB 09:04
PROVIDERS: ATTEND Internal Medicine Infectious Disease
DX: N39.0 Urinary tract infection, site not specified (principal)

== ENCOUNTER → 2025-03-17 | Outpatient (CLI) | payer OTHER ==
[~2025-03-17] MED LIST changes: +LIDO1ADH93 TD; -LIDO5DIS41 TD
== END ==
LOC: M PLAIMG 10:12
PROVIDERS: ATTEND Internal Medicine Pulmonary Disease
DX: R91.8 Other nonspecific abnormal finding of lung field (principal)

== ENCOUNTER → 2025-04-27 | Outpatient (CLI) | payer OTHER ==
[2025-04-27 09:27] LABS: PLATELET COUNT, AUTOMATED 330 10^3/uL (150-450)
[2025-04-27 10:01] LABS: ALT/SGPT 19.0 U/L (7.0-40); AST/SGOT 18.0 U/L (<34); CALCIUM LEVEL 9.6 MG/DL (8.3-10.6); CARBON DIOXIDE LEVEL 33.0 MMOL/L (20-31); CHLORIDE LEVEL 101.0 MMOL/L (98-107); CREATININE FOR GFR 0.91 MG/DL (0.55-1.30); GLOMERULAR FILTRATION RATE 61.1 (>32); POTASSIUM SERUM 4.4 MMOL/L (3.5-5.1); SODIUM LEVEL 142.0 MMOL/L (136-145)
== END ==
LOC: M LAB 08:57
PROVIDERS: ATTEND Internal Medicine Pulmonary Disease
DX: R51.9 Headache, unspecified (principal); Z79.899 Other long term (current) drug therapy

== ENCOUNTER → 2025-04-28 | Outpatient (CLI) | payer OTHER | LOC: M RAD 10:03 | PROVIDERS: ATTEND Internal Medicine Pulmonary Disease | DX: R51.9 Headache, unspecified (principal) ==

== ENCOUNTER → 2025-05-03 | Outpatient (REF) | payer OTHER ==
[2025-05-03 19:12] LABS: BASO # 0.1 10^3/uL (0.0-0.2); BASO % 0.4 % (0.0-1.0); EOS # 0.0 10^3/uL (0.0-0.5); EOS % 0.2 % (0.0-3.0); LYMPH # 0.9 10^3/uL (1.5-5.0); LYMPH % 7.9 % (24.0-44.0); MONO # 0.3 10^3/uL (0.0-0.8); MONO % 2.7 % (2.0-8.0); NEUTROPHILS # 10.4 10^3/uL (1.5-8.5); NEUTROPHILS % 87.9 % (36.0-66.0); PLATELET COUNT, AUTOMATED 322 10^3/uL (150-450)
== END ==
LOC: M LAB REF 17:24
PROVIDERS: ATTEND Internal Medicine Pulmonary Disease
DX: E16.1 Other hypoglycemia (principal)

== ENCOUNTER → 2025-05-04 | Outpatient (CLI) | payer OTHER ==
[2025-05-04 11:16] LABS: ABG BASE EXCESS -1.8 (-2.0-2.0); ABG HCO3 22.5 MMOL/L (22.0-26.0); ABG O2 LITER FLOW 2L; ABG O2 SATURATION 93.8 % (95.0-99.0); ABG PARTIAL PRESSURE CO2 36.8 mmHg (35.0-45.0); ABG PARTIAL PRESSURE O2 68.9 mmHg (75.0-100.0); ABG STANDARD HCO3 22.9 MMOL/L. (22.0-26.0); ABG TOTAL CO2 23.6 MMOL/L (23.0-31.0); ABG pH (ARTERIAL) 7.404 UNITS (7.350-7.450)
== END ==
LOC: M LAB 10:37
PROVIDERS: ATTEND Internal Medicine Pulmonary Disease
DX: E16.1 Other hypoglycemia (principal)

== ENCOUNTER → 2025-06-17 | Outpatient (CLI) | payer OTHER | LOC: M RAD 10:09 | PROVIDERS: ATTEND Internal Medicine Pulmonary Disease | DX: J43.2 Centrilobular emphysema (principal); R91.8 Other nonspecific abnormal finding of lung field ==

== ENCOUNTER → 2025-07-22 | Outpatient (CLI) | payer OTHER | LOC: M WHC 13:15 | PROVIDERS: ATTEND Internal Medicine Pulmonary Disease | DX: J47.9 Bronchiectasis, uncomplicated (principal) ==